=== PATIENT | female | born 1995 | race Caucasian/White ===

== ENCOUNTER 2024-07-05 15:37 | Emergency (ER) | payer OTHER, SELFPAY ==
--- NOTE | ~2024-07-05 | XR_ITS ---
CHEST RADIOGRAPH, PA AND LATERAL CLINICAL HISTORY: CP . COMPARISON: None available TECHNIQUE: PA and lateral views of the chest. FINDINGS The cardiomediastinal silhouette is unremarkable. The lungs are clear. Visualized osseous structures and soft tissues are unremarkable. IMPRESSION: No focal infiltrate or effusion. Reviewed, dictated and finalized at location A. [facility]
[2024-07-05 15:37] VITALS: BP 127/82; RESP 20; O2SAT 100
--- NOTE | 2024-07-05 15:44 | ECG_ITS ---
Test Date: 2024-07-05 15:47:55 Measurements Intervals [place] Rate: 72 P: 23 AK: 130 QRS: 16 QRSD: 89 T: 13 QT: 396 QTc: 434 Interpretive Statements SINUS RHYTHM BASELINE ARTIFACT- I, II, III, AVR, AVL, AVF, V1-V6 NORMAL ECG No previous ECG available for comparison Electronically Signed On 07-05-2024 15:55:39 CASHIER AND WAITER/WAITRESS by Nasir Schafer D.O.
--- NOTE | 2024-07-05 16:09 | ED_ITS ---
HPI - Chest Pain General Chief Complaint: Chest Pain <Rosalinda Rich APRN - Last Filed: 07/05/24 16:12> Stated Complaint: chest pain <Rosalinda Rich APRN - Last Filed: 07/05/24 16:12> Time Seen by Provider: 07/05/24 16:00 <Rosalinda Rich APRN - Last Filed: 07/05/24 16:12> Focused HPI: Patient is a 28-year-old female who presents to the ER with sudden onset right upper back pain. She reports she was sitting in a chair when she started to experience the pain. Patient reports that then sta rted radiating around to her abdomen and to the left side of her back. She reports after the sudden onset she became dizzy, nauseated, and started sweating. Patient reports the pain has relieved since she arrived at the hospital, but does endorse some abdominal pain with palpation. She denies ирина rtness of breath, recent fevers, or urinary symptoms. GENERAL: Well-appearing, well-nourished, and in no acute distress. HEAD: Normocephalic, atraumatic. CHEST: Clear to auscultation. ?No respiratory distress. HEART: Regular rate and rhythm.? NEURO: ?Alert and oriented x3. Patient screened in triage and initial orders placed.? ?Additional care and disposition to be based upon?diagnostic testing and treatment. <Rosalinda Rich APRN - Last Filed: 07/05/24 16:12> Related Data Allergies/Adverse Reactions: Allergies Allergy/AdvReac Type Severity Reaction Status Date / Time No Known Allergies Allergy Unverified 06/15/13 14:57 <Rosalinda Rich APRN - Last Filed: 07/05/24 16:12> Review of Systems Review of Systems: All systems reviewed & are unremarkable except as noted in HPI and below <Mukesh Villalobos MD - Last Filed: 07/05/24 19:39> Exam Narrative: Constitutional: Generally well appearing, no acute distress Head: Atraumatic, no deformities. Eyes: Pupils equal, round, and reactive to light. Neck: Supple, no tracheal deviation, no JVD. ENMT: Mucous membranes moist Cardiovascular: S1, S2 auscultated. No murmurs, rubs, or gallops. No S3/S4. Normal Distal pulses. No peripheral edema. Respiratory: Lung sounds equal. No wheezes, rales, or rhonchi. Gastrointestinal: Abdomen was soft and non-tender. Non-distended. No rebound or guarding. Genitourinary: Deferred Musculoskeletal: Normal muscle tone and bulk. No obvious deformities or tenderness over extremities. Skin: No rashes. Neurological: Strength 5/5 in extremities. Cranial nerves I-XII grossly intact. Distal sensation intact. Mental Status: Awake, alert and oriented x3. Follows commands <Mukesh Villalobos MD - Last Filed: 07/05/24 19:39> Course Vital Signs Vital signs: Vital Signs Respiratory Rate 20 07/05/24 15:37 Blood Pressure 127/82 07/05/24 15:37 Pulse Oximetry 100 07/05/24 15:37 Oxygen Delivery Room Air 07/05/24 15:37 Pulse Rate 61 07/05/24 19:16 Respiratory Rate 15 07/05/24 19:16 Blood Pressure 112/72 07/05/24 19:16 Pulse Oximetry 98 07/05/24 19:16 Oxygen Delivery Room Air 07/05/24 18:45 <Rosalinda Rich APRN - Last Filed: 07/05/24 16:12> Vital Signs Respiratory Rate 20 07/05/24 15:37 Blood Pressure 127/82 07/05/24 15:37 Pulse Oximetry 100 07/05/24 15:37 Oxygen Delivery Room Air 07/05/24 15:37 Pulse Rate 61 07/05/24 19:16 Respiratory Rate 15 07/05/24 19:16 Blood Pressure 112/72 07/05/24 19:16 Pulse Oximetry 98 07/05/24 19:16 Oxygen Delivery Room Air 07/05/24 18:45 <Mukesh Villalobos MD - Last Filed: 07/05/24 19:39> MDM - Chest Pain MDM Narrative Medical decision making narrative: well-appearing female presenting for an episode of chest pain at home. Now asymptomatic. Vitals are regular. Normal cardiorespiratory exam chest pain. Low suspicion for acute cardiac pathology but will be obtaining cardiac workup. Workup shows no cardiac pathology. Did show some slight elevation in LFTs were discussed potentially obtaining CT of her abdomen to further evaluate which she has been asymptomatic since she arrived does not want any further workup done. Reasonable. stable for discharge and return immediately for any new or worsening symptoms. Pt feeling improved and would like to go home at this point. Return precautions were given to the patient include any new or worsening symptoms or development of and not limited to any chest pain, shortness of breath, lightheadedness, abdominal pain, fevers, chills. Patient understands and agrees. They are to follow-up with her PCP. All questions were answered. I reviewed the patient's vital signs, history, allergies, and labs and imaging workup. <Mukesh Villalobos MD - Last Filed: 07/05/24 19:39> Lab Data Result diagrams: 07/05/24 18:43 07/05/24 18:43 <Rosalinda Rich APRN - Last Filed: 07/05/24 16:12> Labs: Lab Results 07/05/24 Range/Units 18:43 WBC 12.4 H (4.5-10.0) K/mm3 RBC 4.82 (4.2-5.4) M/mm3 Hgb 13.7 (12.0-15.0) g/dL Hct 41.1 (37.0-47.0) % MCV 85.3 (80-100) fl MCH 28.4 (26-34) pg MCHC 33.3 (32-36) g/dl RDW 13.5 (11.5-14.5) % Plt Count 384 H (150-375) k/mm3 MPV 9.0 (7.4-10.4) fl Immature Gran % (Auto) 0.4 (0-0.5) % Neut % (Auto) 79.5 H (45.5-73.1) % Lymph % (Auto) 12.7 L (18.3-44.2) % Ferry % (Auto) 6.0 (2.6-8.5) % Eos % (Auto) 0.6 (0-4.4) % Baso % (Auto) 0.8 (0.2-1.2) % Lymph # (Auto) 1.58 (0.9-3.2) K/mm3 Ferry # (Auto) 0.8 H (0.1-0.6) K/mm3 Eos # (Auto) 0.1 (0-0.3) K/mm3 Baso # (Auto) 0.1 (0.0-0.1) K/mm3 Abs Immat Gran (auto) 0.05 H (0.00-0.031) K/mm3 Absolute Neuts (auto) 9.9 H (1.3-6.7) K/mm3 Absolute Nucleated RBC 0.000 (0.0-0.012) K/mm3 Nucleated RBC % 0.0 (0.0-0.2) % PT 13.7 (11.1-14.7) Seconds INR 1.0 APTT 30.1 (22.3-36.8) Seconds Sodium 136 L (137-145) mmol/L Potassium 4.3 (3.4-5.0) mmol/L Chloride 102 (98-107) mmol/L Carbon Dioxide 30 (22-30) mmol/L Anion Gap 4 (4-12) mmol/L BUN 10 (7-17) mg/dL Creatinine 1.00 (0.7-1.0) mg/dL Estim Creat Clear Calc Not Reportable Estimated GFR > 60 (59 - ) Glucose 112 H (65-110) mg/dL Calcium 9.2 (8.4-10.2) mg/dL Total Bilirubin 0.9 (0.2-1.3) mg/dL AST 141 H (14-36) U/L ALT 37 H (6-35) U/L Alkaline Phosphatase 185 H (38-126) U/L Troponin I < 0.012 (0.000-0.034) ng/mL Total Protein 8.0 (6.3-8.2) g/dL Albumin 4.3 (3.5-5.1) g/dL Lipase 109 (23-300) U/L <Rosalinda Rich, CHEMICAL DEPENDENCY COUNSELOR - Last Filed: 07/05/24 16:12> Lab Results 07/05/24 Range/Units 18:43 WBC 12.4 H (4.5-10.0) K/mm3 RBC 4.82 (4.2-5.4) M/mm3 Hgb 13.7 (12.0-15.0) g/dL Hct 41.1 (37.0-47.0) % MCV 85.3 (80-100) fl MCH 28.4 (26-34) pg MCHC 33.3 (32-36) g/dl RDW 13.5 (11.5-14.5) % Plt Count 384 H (150-375) k/mm3 MPV 9.0 (7.4-10.4) fl Immature Gran % (Auto) 0.4 (0-0.5) % Neut % (Auto) 79.5 H (45.5-73.1) % Lymph % (Auto) 12.7 L (18.3-44.2) % Ferry % (Auto) 6.0 (2.6-8.5) % Eos % (Auto) 0.6 (0-4.4) % Baso % (Auto) 0.8 (0.2-1.2) % Lymph # (Auto) 1.58 (0.9-3.2) K/mm3 Ferry # (Auto) 0.8 H (0.1-0.6) K/mm3 Eos # (Auto) 0.1 (0-0.3) K/mm3 Baso # (Auto) 0.1 (0.0-0.1) K/mm3 Abs Immat Gran (auto) 0.05 H (0.00-0.031) K/mm3 Absolute Neuts (auto) 9.9 H (1.3-6.7) K/mm3 Absolute Nucleated RBC 0.000 (0.0-0.012) K/mm3 Nucleated RBC % 0.0 (0.0-0.2) % PT 13.7 (11.1-14.7) Seconds INR 1.0 APTT 30.1 (22.3-36.8) Seconds Sodium 136 L (137-145) mmol/L Potassium 4.3 (3.4-5.0) mmol/L Chloride 102 (98-107) mmol/L Carbon Dioxide 30 (22-30) mmol/L Anion Gap 4 (4-12) mmol/L BUN 10 (7-17) mg/dL Creatinine 1.00 (0.7-1.0) mg/dL Estim Creat Clear Calc Not Reportable Estimated GFR > 60 (59 - ) Glucose 112 H (65-110) mg/dL Calcium 9.2 (8.4-10.2) mg/dL Total Bilirubin 0.9 (0.2-1.3) mg/dL AST 141 H (14-36) U/L ALT 37 H (6-35) U/L Alkaline Phosphatase 185 H (38-126) U/L Troponin I < 0.012 (0.000-0.034) ng/mL Total Protein 8.0 (6.3-8.2) g/dL Albumin 4.3 (3.5-5.1) g/dL Lipase 109 (23-300) U/L <Mukesh Villalobos MD - Last Filed: 07/05/24 19:39> Discharge Plan Discharge Clinical Impression: Atypical chest pain <Rosalinda Rich APRN - Last Filed: 07/05/24 16:12> Patient Disposition: Home, Self-Care <Rosalinda Rich APRN - Last Filed: 07/05/24 16:12> Condition: Stable <Rosalinda Rich APRN - Last Filed: 07/05/24 16:12> Instructions: Antibiotic Form, Chest Pain (ED) <Rosalinda Rich APRN - Last Filed: 07/05/24 16:12> Follow-up/Referrals: PHYSICIAN,COMPUTER SUPPORT TECHNICIAN [Non-Staff] - <Rosalinda Rich APRN - Last Filed: 07/05/24 16:12> Time of Disposition: 19:38 <Rosalinda Rich APRN - Last Filed: 07/05/24 16:12> 19:38 <Mukesh Villalobos MD - Last Filed: 07/05/24 19:39>
[2024-07-05 18:45] VITALS: PULSE 69; O2SAT 99
[2024-07-05 18:46] VITALS: BP 122/79; PULSE 74; RESP 18; O2SAT 99
[2024-07-05 18:48] LABS: Basophils Absolute Auto 0.1 K/mm3 (0.0-0.1); Basophils Percent Auto 0.8 % (0.2-1.2); Eosinophils Absolute Auto 0.1 K/mm3 (0-0.3); Eosinophils Percent Auto 0.6 % (0-4.4); Hematocrit 41.1 % (37.0-47.0); Hemoglobin 13.7 g/dL (12.0-15.0); Immature Granulocyte Absolute 0.05 K/mm3 (0.00-0.031); Immature Granulocyte Percent A 0.4 % (0-0.5); Lymphocytes Absolute Auto 1.58 K/mm3 (0.9-3.2); Lymphocytes Percent Auto 12.7 % (18.3-44.2); Mean Corpuscular HGB Conc 33.3 g/dl (32-36); Mean Corpuscular Hemoglobin 28.4 pg (26-34); Mean Corpuscular Volume 85.3 fl (80-100); Monocytes Absolute Auto 0.8 K/mm3 (0.1-0.6); Neutrophils Absolute Auto 9.9 K/mm3 (1.3-6.7); Neutrophils Percent Auto 79.5 % (45.5-73.1); Platelet Count Result 384 k/mm3 (150-375); Red Blood Count 4.82 M/mm3 (4.2-5.4); Red Cell Distribution Width 13.5 % (11.5-14.5); White Blood Count 12.4 K/mm3 (4.5-10.0)
[2024-07-05 19:00] LABS: Alanine Aminotransferase 37 U/L (6-35); Albumin Level 4.3 g/dL (3.5-5.1); Alkaline Phosphatase 185 U/L (38-126); Anion Gap 4 mmol/L (4-12); Aspartate Amino Transferase 141 U/L (14-36); Bilirubin,Total 0.9 mg/dL (0.2-1.3); Blood Urea Nitrogen 10 mg/dL (7-17); Calcium 9.2 mg/dL (8.4-10.2); Carbon Dioxide 30 mmol/L (22-30); Chloride 102 mmol/L (98-107); Estimated Glomerular Filt Rate > 60; Glucose 112 mg/dL (65-110); Lipase 109 U/L (23-300); Potassium 4.3 mmol/L (3.4-5.0); Sodium 136 mmol/L (137-145)
[2024-07-05 19:01] VITALS: BP 113/88; PULSE 67; RESP 19; O2SAT 99
[2024-07-05 19:07] LABS: Prothrombin Time 13.7 Seconds (11.1-14.7)
[2024-07-05 19:08] LABS: Partial Thromboplastin Time 30.1 Seconds (22.3-36.8)
[2024-07-05 19:09] LABS: Troponin I < 0.012 ng/mL (0.000-0.034)
[2024-07-05 19:16] VITALS: BP 112/72; PULSE 61; RESP 15; O2SAT 98
[2024-07-05 19:39] VITALS: BP 122/81; PULSE 79; RESP 15; TEMP 36.7; O2SAT 98
== END 2024-07-05 19:45 | disposition home or self-care (01) ==
PROVIDERS: Emergency Medicine; Emergency Provider Emergency Medicine
DX: R07.9 Chest pain, unspecified (principal)
CPT/HCPCS: 36415; 71046; 80053; 83690; 84484; 85025; 85610; 85730; 93005; 99284